=== PATIENT | male | born 1980 | race Caucasian/White ===

== ENCOUNTER 2019-01-06 21:29 | Emergency (ER) | payer BC, MEDICAID, OTHER ==
[2019-01-06 21:47] VITALS: BP 134/74
--- NOTE | 2019-01-06 23:46 | ER Document Report ---
ED General - General Chief Complaint: Abdominal Pain Stated Complaint: COLD SYMPTOMS Time Seen by Provider: 01/06/19 23:37 Notes: Patient is a 38-year-old male that comes to the emergency department for chief complaint of abdominal pain, he states he cannot have a bowel movement for several days and then when he was having bowel movements it was only diarrhea, he has had 6 episodes of watery diarrhea today. He did recently drink from a [place] stream [place] hike, within 48 hours he started having the symptoms. He also states he has some congestion and cough. No recorded fevers. He denies vomiting but he does report reduced oral intake. He recently tried the keto diet as well but has been off this for some time. He denies any daily medications, surgeries, or diagnosed medical history. TRAVEL OUTSIDE OF THE [place] IN LAST 30 DAYS: No - Related Data Allergies/Adverse Reactions: No Known Allergies Allergy (Unverified 01/06/19 21:34) Past Medical History - General Information source: Patient - Social History Smoking Status: Never Smoker Frequency of alcohol use: None Drug Abuse: None Lives with: Family Family History: Reviewed & Not Pertinent - Medical History Medical History: Negative Surgical Hx: Negative - Immunizations Immunizations up to date: Yes Hx Diphtheria, Pertussis, Tetanus Vaccination: Yes Review of Systems - Review of Systems Constitutional: See HPI EENT: See HPI Cardiovascular: No symptoms reported Respiratory: See HPI Gastrointestinal: See HPI Genitourinary: No symptoms reported Male Genitourinary: No symptoms reported Musculoskeletal: No symptoms reported Skin: No symptoms reported Hematologic/Lymphatic: No symptoms reported Neurological/Psychological: No symptoms reported Physical Exam - Vital signs Vitals: Temp Pulse Resp BP Pulse Ox 98.9 F 78 20 134/74 H 99 01/06/19 21:44 01/06/19 21:44 01/06/19 21:44 01/06/19 21:44 01/06/19 21:44 - Notes Notes: GENERAL: Alert, interacts well. No acute distress. HEAD: Normocephalic, atraumatic. EYES: Pupils equal, round, and reactive to light. Extraocular movements intact. ENT: Oral mucosa moist, tongue midline. Oropharynx unremarkable. Airway patent. Nares patent, no nasal septal hematoma, TM's intact. NECK: Full range of motion. Supple. Trachea midline. LUNGS: Clear to auscultation bilaterally, no wheezes, rales, or rhonchi. No respiratory distress. HEART: Regular rate and rhythm. No murmur ABDOMEN: Soft, non-tender. Non-distended. Bowel sounds present in all 4 quadrants. GENITOURINARY: Deferred EXTREMITIES: Moves all 4 extremities spontaneously. No edema, normal radial and dorsalis pedis pulses bilaterally. No cyanosis. BACK: no cervical, thoracic, lumbar midline tenderness. No saddle anesthesia, normal distal neurovascular exam. NEUROLOGICAL: Alert and oriented x3. Normal speech. [cranial nerves II through XII grossly intact]. PSYCH: Normal affect, normal mood. SKIN: Warm, dry, normal turgor. No rashes or lesions noted. Course - Re-evaluation Re-evalutation: Patient has mild sinus congestion and occasional cough. Unremarkable ENT exam otherwise, probably allergic or viral. I did discuss this with patient although this is not his primary complaint. I did discuss [id number] medications he could use for this. Acute abdominal series with some air-fluid levels, however patient has never had abdominal surgery, on reevaluation patient had already started drinking Gatorade without asking, he tolerated this without any difficulty, he states he feels better. He is able to tolerate p.o., he is still moving his bowels, he is not in any distress, possible partial ileus. He will be placed on stool softener. This was discussed in detail. Patient's abdomen is benign, he is complaining of cramping, he was able to provide a loose stool for us without difficulty, has had 7 loose stools today. Nonbloody. No fever. Patient is well-appearing on exam. CBC, chemistry unremarkable. Initial stool testing is negative, culture and Gram stain are pending. Because of patient's consumption [place] fresh [place] and a subsequent cramping and diarrhea I do suspect possible Giardia. I discussed this with patient. After discussion of options decision was made to treat patient now pending culture results because of his persistent diarrhea, given Flagyl. Discussed expectations, follow-up, return precautions. Patient states understanding and agreement. - Vital Signs Vital signs: Temp Pulse Resp BP Pulse Ox 98.9 F 78 20 134/74 H 99 01/06/19 21:44 01/06/19 21:44 01/06/19 21:44 01/06/19 21:44 01/06/19 21:44 - Laboratory Result Diagrams: 01/07/19 00:19 01/07/19 00:19 Laboratory results interpreted by me: 01/07/19 00:19 RBC 5.59 H MCV 72 L MCH 24.6 L Monocytes % 19.8 H Discharge - Discharge Clinical Impression: Abdominal pain Qualifiers: Abdominal location: generalized Qualified Code(s): R10.84 - Generalized abdominal pain Diarrhea Qualifiers: Diarrhea type: unspecified type Qualified Code(s): R19.7 - Diarrhea, unspecified Condition: Stable Disposition: HOME, SELF-CARE Additional Instructions: Your symptoms are suggestive of Giardia infection. We are treating you with metronidazole for this, we have a culture pending with your additional results. Based on your workup I also recommend the Colace stool softener, take the Zofran as needed for nausea, start with clear fluids, progress to bland food. Return if you worsen including severe worsening abdominal pain, swelling of the abdomen, vomiting, fever, or any other concerning or worsening symptoms. Prescriptions: Docusate Sodium [Colace 100 mg Capsule] 100 mg PO ASDIR PRN #30 capsule PRN Reason: Metronidazole [Flagyl 500 mg Tablet] 500 mg PO BID #14 tablet Ondansetron [Zofran Odt 4 mg Tablet] 1 - 2 tab PO Q4H PRN #20 tab.rapdis PRN Reason: For Nausea/Vomiting
--- NOTE | 2019-01-07 00:28 | RADIOLOGY REPORT (SQ) ---
EXAM DESCRIPTION: XR ABDOMEN SUPINE AND ERECT WITH CHEST (ABD ACUTE SERIES) COMPLETED DATE/TME: 01/06/2019 23:44 CLINICAL HISTORY: 38 years, Male, abd pain, no recent normal bowel movement COMPARISON: None. FINDINGS: The lungs are clear. There are no pleural abnormalities. The cardiac silhouette and pulmonary vessels are normal. Mild gaseous dilatation of the large and small bowel. Scattered air-fluid levels in the mid abdomen and right lower quadrant. No abnormal calcifications. No acute osseous abnormality. IMPRESSION: No acute cardiopulmonary disease. Scattered air-fluid levels and mild gaseous dilatation of the bowel.
[2019-01-07 00:34] LABS: ABSOLUTE LYMPHOCYTES (AUTO) 1.4 10^3/uL (0.5-4.7); ABSOLUTE MONOCYTES (AUTO) 1.4 10^3/uL (0.1-1.4); ABSOLUTE NEUT (AUTO) 4.1 10^3/uL (1.7-8.2); BASOPHILS % (AUTO) 0.2 % (0-2); EOSINOPHILS % (AUTO) 0.5 % (0-6); HEMATOCRIT 40.3 % (37.9-51.0); HEMOGLOBIN 13.7 g/dL (13.5-17.0); LYMPHOCYTES % (AUTO) 19.7 % (13-45); MEAN CORPUSCULAR HEMOGLOBIN 24.6 pg (27.0-33.4); MEAN CORPUSCULAR HGB CONC 34.1 g/dL (32.0-36.0); MEAN CORPUSCULAR VOLUME 72 fl (80-97); MONOCYTES % (AUTO) 19.8 % (3-13); PLATELET COUNT 182 10^3/uL (150-450); RED BLOOD COUNT 5.59 10^6/uL (4.35-5.55); SEGMENTED NEUTROPHILS % (AUTO) 59.8 % (42-78); TOTAL CELLS COUNTED % (AUTO) 100 %; WHITE BLOOD COUNT 6.9 10^3/uL (4.0-10.5)
[2019-01-07 00:50] LABS: ALANINE AMINOTRANSFERASE 28 U/L (21-72); ALBUMIN 3.9 g/dL (3.5-5.0); ALKALINE PHOSPHATASE 66 U/L (38-126); ANION GAP 9 (5-19); ASPARTATE AMINO TRANSFERASE 20 U/L (17-59); BILIRUBIN,DIRECT 0.1 mg/dL (0.0-0.4); BILIRUBIN,TOTAL 0.8 mg/dL (0.2-1.3); BLOOD UREA NITROGEN 18 mg/dL (7-20); CALCIUM 9.1 mg/dL (8.4-10.2); CARBON DIOXIDE 28 mmol/L (22-30); CHLORIDE 101 mmol/L (98-107); GLUCOSE 93 mg/dL (75-110); POTASSIUM 4.2 mmol/L (3.6-5.0); SODIUM 137.9 mmol/L (137-145); TOTAL PROTEIN 6.8 g/dL (6.3-8.2)
[2019-01-07] MEDS ORDERED: ONDANSETRON ODT 4 MG TAB (6 TAB/ER DISP) PO PRN (01:49)
[2019-01-07] MEDS ORDERED: METRONIDAZOLE 500 MG TABLET PO ONE (01:49)
== END 2019-01-07 02:06 | disposition home or self-care (01) ==
LOC: ER 21:29
DX: R10.84 Generalized abdominal pain (principal); R19.7 Diarrhea, unspecified
CPT/HCPCS: 36415; 74022; 80053; 85025; 87045; 87205; 87493; 89055; 99283